=== PATIENT | male | born 1975 | race Caucasian/White ===

== ENCOUNTER 2021-03-10 19:51 | Emergency (ER) | payer MEDICARE, MEDICAID, SELFPAY ==
[2021-03-10 19:52] VITALS: BP 129/114; PULSE 110; RESP 18; TEMP 37; O2SAT 96; BMI 24.8
--- NOTE | 2021-03-10 20:15 | EKG12_ITS ---
Test Reason : CP Blood Pressure : / mmHG Vent. Rate : 104 BPM Atrial Rate : 104 BPM P-R Int : 156 ms QRS Dur : 112 ms QT Int : 340 ms P-R-T Axes : 064 071 033 degrees QTc Int : 447 ms Sinus tachycardia Otherwise normal ECG Confirmed by LEO ESPINOZA, DAMON ([id number]), copy editor FLORI HERNANDEZ ([id number]) on 03/13/2021 12:45:23 PM Referred By: BARB Confirmed By:ALLISON BAILEY MD
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
--- NOTE | 2021-03-10 20:25 | RAD_ITS ---
STUDY: X-RAY CHEST REASON FOR EXAM: Male, 45 years old. Chest pain. TECHNIQUE: Single AP portable view of the chest. COMPARISON: None. FINDINGS: The lungs are clear and expanded. There is no demonstrated pleural abnormality. Normal size heart. Normal mediastinum and nicole. Normal visualized pulmonary arteries. Normal visualized aortic arch and descending thoracic aorta. Normal visualized thoracic spine. Normal visualized ribs, clavicles, and shoulders. There is no demonstrated abnormality of the visualized soft tissue structures of the upper abdomen. RAD/Chest 1 View (Portable) IMPRESSION: Normal x-ray examination of the chest. Electronically Signed: Vincent Chapa DO at 21:23 EDT Tel [phone], Service support ,
== END 2021-03-10 20:54 | disposition home or self-care (01) ==
PROVIDERS: Emergency Provider Emergency Medicine; PCP Family Medicine
DX: S06.0X0A Concussion without loss of consciousness, initial encounter (principal); R07.89 Other chest pain; S20.214A Contusion of middle front wall of thorax, initial encounter; Y04.0XXA Assault by unarmed brawl or fight, initial encounter; Y93.9 Activity, unspecified; Y92.9 Unspecified place or not applicable; Z87.820 Personal history of traumatic brain injury; Z79.899 Other long term (current) drug therapy; F17.290 Nicotine dependence, other tobacco product, uncomplicated
CPT/HCPCS: 70450; 71045; 93005; 99282

== ENCOUNTER 2021-07-25 12:25 | Emergency (ER) | payer MEDICARE, MEDICAID, SELFPAY ==
[2021-07-25 12:27] VITALS: BP 128/85; PULSE 86; RESP 15; TEMP 36.2; O2SAT 97; BMI 24.9
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
--- NOTE | 2021-07-25 14:07 | EKG12_ITS ---
Test Reason : DIZZINESS Blood Pressure : / mmHG Vent. Rate : 091 BPM Atrial Rate : 091 BPM P-R Int : 160 ms QRS Dur : 110 ms QT Int : 364 ms P-R-T Axes : 060 075 018 degrees QTc Int : 447 ms Normal sinus rhythm Normal ECG Confirmed by ULICES ESPINOZA, HERBIE ([id number]), marketing editor FLORI HERNANDEZ ([id number]) on 07/28/2021 1:52:30 PM Referred By: RACHEL Confirmed By:HERBIE ELENA MD
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
[2021-07-25 15:11] VITALS: BP 120/59; PULSE 87; RESP 14
[2021-07-25 16:17] VITALS: BP 125/88; PULSE 99; RESP 18; O2SAT 100
== END 2021-07-25 16:33 | disposition home or self-care (01) ==
PROVIDERS: Emergency Provider Emergency Medicine; PCP Family Medicine; Visit Provider Emergency Medicine
DX: S62.356A Nondisplaced fracture of shaft of fifth metacarpal bone, right hand, initial encounter for closed fracture (principal); G40.909 Epilepsy, unspecified, not intractable, without status epilepticus; F17.210 Nicotine dependence, cigarettes, uncomplicated; F12.90 Cannabis use, unspecified, uncomplicated; Y04.0XXA Assault by unarmed brawl or fight, initial encounter; Y93.9 Activity, unspecified; Y92.9 Unspecified place or not applicable; Z87.820 Personal history of traumatic brain injury; M25.561 Pain in right knee; M25.562 Pain in left knee
CPT/HCPCS: 29125; 70450; 72125; 73130; 73564; 93005; 99282